=== PATIENT | female | born 1985 | race Caucasian/White ===

== ENCOUNTER → 2016-10-17 | Outpatient (CLI) | payer BC, OTHER ==
[~2016-10-17] MED LIST: BCPILLS PO; FLUT0.15 NAE; PRENTAB26 PO
--- NOTE | 2016-10-17 07:41 | DIAGNOSTIC IMAGING REPORT ---
ABDOMINAL WALL ULTRASOUND CLINICAL HISTORY: Palpable mass COMPARISON STUDY: No previous studies for comparison. FINDINGS: The patient describes 2 palpable abnormalities. Within the left anterior abdominal wall, no ultrasonographic lesions were visualized. At the level of the left lateral ribs there is a 31 x 5 x 13 mm mass isoechoic to adjacent fat and likely representing a lipoma. Clinical correlation is advocated. IMPRESSION: 1. At the level of the left lateral ribs there is a 31 x 5 x 13 mm mass isoechoic to adjacent fat, and likely representing a lipoma. Clinical correlation is advocated 2. No ultrasonographic masses identified within the left anterior abdominal wall. Electronically signed by: Charlie Arce M.D. 10/17/2016 7:40 AM Dictated Date/Time: 10/17/2016 7:38 AM
[2016-10-17 09:45] LABS: BASO % 0.4 %; BASO ABS # 0.03 K/uL (0-0.2); COMPLETE YES; EOS % 1.2 %; HEMATOCRIT 41.4 % (37-47); IG% 0.4 %; LYMPH % 13.6 %; MEAN CELL VOLUME 87.5 fL (80-100); MEAN CORPUSCULAR HGB CONC 34.3 g/dl (32-36); MEAN PLATELET VOLUME 10.3 fL (7.4-10.4); MONO % 12.1 %; NEUT % 72.3 %; PLATELET COUNT 264 K/uL (130-400); RED BLOOD COUNT 4.73 M/uL (4.2-5.4); WHITE BLOOD COUNT 7.38 K/uL (4.8-10.8)
[2016-10-17 09:53] LABS: PARTIAL THROMBOPLASTIN RATIO 1.1; PROTHROMBIN TIME (PATIENT) 11.2 SECONDS (9.0-12.0)
[2016-10-17 10:00] LABS: POTASSIUM 4.2 mmol/L (3.5-5.1)
== END | disposition home or self-care (01) ==
LOC: C.ULTR 07:03
PROVIDERS: ATTEND Plastic Surgery
DX: Z01.812 Encounter for preprocedural laboratory examination (principal); M79.9 Soft tissue disorder, unspecified

== ENCOUNTER → 2016-11-04 | Day surgery (SDC) | payer BC, OTHER ==
[2016-10-21 15:35] VITALS: Ht 161.9 cm; Wt 72.7 kg
[~2016-11-04] VITALS: Ht 161.9 cm; Wt 72.7 kg
[~2016-11-04] MED LIST changes: +ACETAMINOPHEN 325 MG TAB PO PRN; +ATROPINE SULFATE 0.1 MG/ML 5ML SYR IV PRN; -BCPILLS PO; +BUPIVACAINE 0.25% 2.5MG/ML PF 10 ML VIAL INFIL ONE; +CEFAZOLIN 2000 MG/60 ML D5W IV SCH; +DEXAMETHASONE SOD INJ 4 MG/ML VIAL ONE; +EpHEDrine SULFATE INJ 50 MG/ML AMP IV PRN; +FENTANYL CITRATE INJ 50 MCG/1 ML 2 ML VIAL IV PRN; +FENTANYL CITRATE INJ 50 MCG/1 ML 2 ML VIAL ONE; +KETAMINE HCL INJ 50 MG/ML 10 ML VIAL ONE; +LACTATED RINGER'S 1000ML 1,000 ML IV SCH; +LIDOCAINE HCL 2% 2 ML VIAL (20MG/ML) ONE; +METOCLOPRAMIDE HCL INJ 5 MG/ML 2 ML VIAL IV PRN; +MIDAZOLAM HCL 1 MG/ML 2ML VIAL ONE; +ONDANSETRON INJ 2 MG/ML 2 ML VIAL IV PRN; +ONDANSETRON INJ 2 MG/ML 2 ML VIAL ONE; +OXYCODONE/ACETAMINOPHEN 5-325 TAB PO PRN; +PROPOFOL IV EMULSION 10 MG/ML 20 ML VIAL IV ONE; +SCOPOLAMINE 1.5 MG TDSY TD ONE; +SODIUM CHLORIDE 0.9% 1000ML 1,000 ML IV SCH; +SODIUM CHLORIDE 0.9% INJ 10 ML VIAL ONE
--- NOTE | 2016-11-04 08:34 | History & Physical Bridge - SC ---
H&P Re-Evaluation Bridge Note: I have examined the patient, reviewed the History & Physical and in the interval since the performance of the History & Physical I have noted the following changes of clinical significance: Recent URI and yeast infection; resolved
[2016-11-04] MEDS: LIDOCAINE/EPINEPHRINE 1% INJ 50 ML VIAL ONE (08:56)
--- NOTE | 2016-11-04 09:49 | [facility] Post Operative Brief Note ---
Immediate Operative Summary Operative Date Nov 04, 2016. Pre-Operative Diagnosis Left Abdomen Soft Tissue Mass Post-Operative Diagnosis Same Procedure(s) Performed Left Abdomen Soft Tissue Mass Excision Surgeon Dr. Bar Senior Web Analyst Surgeon(s) Brayden Rodriguez PA-C Estimated Blood Loss 1 mL Findings lipoma left upper abdomen 6x6 cm, subcutaneous and fibrous Specimens A. Mass Left Abdomen Drains 1/4 inch cristóbal Anesthesia local with sedation Complication(s) None Disposition Recovery Room / PACU
[2016-11-04 09:55] VITALS: TEMP 36.7
--- NOTE | 2016-11-04 10:02 | Discharge Instructions ---
Discharge Instructions Admission Reason for Admission: Soft Tissue Mass Left Abdomen Discharge Discharge Diagnosis / Problem: soft tissue mass of left abdomen Discharge Goals Goal(s): Decrease discomfort Activity Recommendations Activity Limitations: as noted below ACTIVITY RECOMMENDATIONS: __Normal activities _x_No bending, lifting or straining __No driving _x_Driving allowed when you are off pain medications __Walking permitted __You should have help at home for ___ days DRESSINGS: __No dressings required _x_Keep dressings dry/in place until first office visit. You may reinforce the dressing if it gets saturated. You have a drain in place that is expected to drain into the gauze. __Remove dressings ___ and leave dressings off _x_Apply ice __2_ days __Remove dressings and reapply garment __Apply antibiotic ointment (Bacitracin, Neosporin, etc) to wounds 3-4 times/ day for 10 days BATHING: _x_Keep dressings dry _x_Sponge bathing permitted __Showering permitted _x_No swimming, hot tubs or soaking in a tub MEDICATIONS: Resume previous medications unless instructed otherwise by your surgeon. _x_Do not use aspirin, Motrin, Advil or Ibuprofen as these may promote bleeding. Please use Tylenol. _x_Prescription(s) provided: pain medicated provided at your last office visit OTHER INSTRUCTIONS: __Record drain output 2-3 times per day SPECIAL CARE INSTRUCTIONS: * It is normal to have a mild fever after surgery. If your temperature is higher than 101.5 degrees F, please call the office at [phone]. * Constipation is a typical side effect of pain medication. An over-the- counter stool softener will help relieve this. * Leaking around surgical drains may occur and should not cause concern. Sometimes these drains become clogged. If this happens, remove the bulb and milk the clot out of the tube, then replace the bulb. * Drainage from wounds after liposuction is normal and should be expected. Garments will become soiled. You should protect furniture and bedding. This drainage should mostly subside within 2-3 days. Leave garments in place unless instructed to remove them. * If you have unusual drainage from a wound or are concerned you have an infection or have any questions or concerns, please call the office at [phone]. FOLLOW UP VISIT: If not already scheduled, please call the office, , when you return home after surgery to schedule an appointment to be seen in __2_ days. . Current Hospital Diet Patient's current hospital diet: Discharge Diet Recommended Diet: Regular Diet Procedures Procedures Performed: Left Abdomen Soft Tissue Mass Excision Pending Studies Studies pending at discharge: yes List of pending studies: pathology Medical Emergencies . Who to Call and When: Medical Emergencies: If at any time you feel your situation is an emergency, please call 911 immediately. . Non-Emergent Contact Non-Emergency issues call your: Primary Care Provider, Surgeon . "Provider Documentation" section prepared by Maribell Rodriguez. VTE Core Measure Inpt VTE Proph given/why not?: SCD's [place] Drug Monitoring Program Search Results: no issues identified
[2016-11-04 10:45] VITALS: BP 107/67; PULSE 79; O2SAT 98
--- NOTE | 2016-11-04 10:49 | Anesthesia Progress Nt - [facility] ---
Anesthesia Post Op Note Date & Time Nov 04, 2016 at 10:49 Vital Signs Pain Intensity: 3.0 Vital Signs Past 12 Hours Date Time Temp Pulse Resp B/P Pulse Ox O2 Delivery O2 Flow Rate FiO2 11/04/16 10:45 79 16 107/67 98 Room Air 11/04/16 10:26 77 16 107/70 97 Room Air 11/04/16 09:55 36.7 86 16 120/66 97 Room Air 11/04/16 07:44 36.9 104 20 135/84 99 Room Air Notes Mental Status: alert / awake / arousable, participated in evaluation Pt Amnestic to Procedure: Yes Nausea / Vomiting: adequately controlled Pain: adequately controlled Airway Patency, RR, SpO2: stable & adequate BP & HR: stable & adequate Hydration State: stable & adequate Anesthetic Complications: no major complications apparent
--- NOTE | 2016-11-04 14:24 | OPERATIVE REPORT ---
DATE OF OPERATION: 11/04/2016 PREOPERATIVE DIAGNOSIS: Left upper abdomen lipoma. POSTOPERATIVE DIAGNOSIS: Same. PROCEDURE: Excision of lipoma, left upper abdomen. SURGEON: Dr. Josephine Bar. JAI ALAI PLAYER: Maribell Rodriguez PA-C. ANESTHESIA: Local with sedation. COMPLICATIONS: None. INDICATION FOR THE PROCEDURE: The patient is a 31-year-old female who presented to my office with an enlarging lipoma of her left upper abdomen. She stated that the area began as a small well-circumscribed mass that had been stable for years and then began to grow. Ultrasound showed a small lipoma which was palpable on clinical exam but did not comment about the diffuse, apparent soft tissue mass surrounding this. We therefore elected to proceed with removal. BRIEF DESCRIPTION OF THE PROCEDURE: Risks, benefits, and alternatives of the procedure were explained to the patient who agreed and signed consent. She was identified and marked in the preoperative holding area. She was brought to the operating room where she was positioned supine and placed under sedation without incident. Surgical site was prepped and draped sterilely. A time-out procedure was performed. A 50:50 mixture of 0.25% Marcaine plain and 1% lidocaine with epinephrine was used to anesthetize the area. A 15-blade scalpel was used to make the skin incision and the incision was deepened using electrocautery through dermis and into subcutaneous tissue. Within the subcutaneous tissue, a somewhat poorly circumscribed soft tissue mass was identified, that was consistent with lipoma. Multiple fibrous septa were divided using electrocautery to dissect the lipoma sharply and blunt finger dissection was used to remove the entire lipoma. This included the small palpable mass as well as the diffuse larger surrounding mass. Following resection, no additional palpable thickening or mass was identified. Hemostasis was achieved with electrocautery. The wound bed was irrigated. Given the relatively large size of the wound bed, a quarter inch Inés drain was placed prior to closure. The specimen measured 6 x 6 cm in aggregate. The wound was reapproximated using 2-0 Vicryl deep dermal sutures and 3-0 Monocryl running subcuticular suture. Dermabond was applied. The Inés drain was brought out through the end of the incision prior to closure. A dry dressing was placed. The procedure was tolerated well. She was awakened and transferred to recovery room in satisfactory condition. I attest to the content of the Intraoperative Record and any orders documented therein. Any exceptio ns are noted below.
== END | disposition home or self-care (01) ==
LOC: X.SURG 07:34
PROVIDERS: ATTEND Plastic Surgery
DX: D17.39 Benign lipomatous neoplasm of skin and subcutaneous tissue of other sites (principal)

== ENCOUNTER → 2016-12-19 | Outpatient (CLI) | payer BC, OTHER ==
[~2016-12-19] MED LIST changes: -ACETAMINOPHEN 325 MG TAB PO PRN; -ATROPINE SULFATE 0.1 MG/ML 5ML SYR IV PRN; -BUPIVACAINE 0.25% 2.5MG/ML PF 10 ML VIAL INFIL ONE; -CEFAZOLIN 2000 MG/60 ML D5W IV SCH; -DEXAMETHASONE SOD INJ 4 MG/ML VIAL ONE; -EpHEDrine SULFATE INJ 50 MG/ML AMP IV PRN; -FENTANYL CITRATE INJ 50 MCG/1 ML 2 ML VIAL IV PRN; -FENTANYL CITRATE INJ 50 MCG/1 ML 2 ML VIAL ONE; -KETAMINE HCL INJ 50 MG/ML 10 ML VIAL ONE; -LACTATED RINGER'S 1000ML 1,000 ML IV SCH; -LIDOCAINE HCL 2% 2 ML VIAL (20MG/ML) ONE; -METOCLOPRAMIDE HCL INJ 5 MG/ML 2 ML VIAL IV PRN; -MIDAZOLAM HCL 1 MG/ML 2ML VIAL ONE; -ONDANSETRON INJ 2 MG/ML 2 ML VIAL IV PRN; -ONDANSETRON INJ 2 MG/ML 2 ML VIAL ONE; -OXYCODONE/ACETAMINOPHEN 5-325 TAB PO PRN; -PROPOFOL IV EMULSION 10 MG/ML 20 ML VIAL IV ONE; -SCOPOLAMINE 1.5 MG TDSY TD ONE; -SODIUM CHLORIDE 0.9% 1000ML 1,000 ML IV SCH; -SODIUM CHLORIDE 0.9% INJ 10 ML VIAL ONE
--- NOTE | 2016-12-19 13:03 | MAMMOGRAPHY REPORT ---
ULTRASOUND OF RIGHT BREAST: 12/19/2016 CLINICAL HISTORY: The patient reports a lumpy area in her right breast. She stopped control p ills approximately 6 months ago and is trying to get . She reports her menstrual period is late and she could not exclude the possibility of . COMPARISON: No prior exams were available for comparison. TECHNIQUE: Real-time targeted ultrasound of the right breast was performed. FINDINGS: Real-time, high resolution targeted ultrasound was performed of the area of the lumps pointed out by the patient, in the right 11 to 12:00 breast, 8 cm from the nipple. Sonographically normal tissue is seen in this region, without evidence of a mass or other suspicious sonographic normality. After discussion with the patient, as the possibility of could not be excluded, mammograms were not performed today. IMPRESSION: ACR BI-RADS CATEGORY 1: NEGATIVE No sonographic abnormality at the site of the right breast lumps pointed out by the patient. There is no sonographic evidence of malignancy. As the possibility of cannot be excluded, mammo grams were not performed today. The typical diagnostic workup for a patient over 30 with a palpable lump includes mammograms and ultrasound. I would recommend the patient return for diagnostic mammo grams of the right breast when the possibility of is excluded, in order to have a complete diagnostic workup. The patient was verbally notified of the results. She tentatively scheduled the follow-up mammogram s before leaving the department. Cathy Delvalle M.D. /:12/19/2016 10:55:13 Biomedical Engineering Technologist: Cathy Delvalle MD, [facility] letter sent: Normal 1/2 BI-RADS Code: ACR BI-RADS Category 1: Negative
== END | disposition home or self-care (01) ==
LOC: C.MAMM 08:42
PROVIDERS: ATTEND Obstetrics & Gynecology
DX: N64.4 Mastodynia (principal)

== ENCOUNTER → 2017-01-06 | Outpatient (CLI) | payer BC, OTHER ==
--- NOTE | 2017-01-06 15:28 | MAMMOGRAPHY REPORT ---
UNILATERAL RIGHT DIGITAL DIAGNOSTIC MAMMOGRAM TOMOSYNTHESIS WITH CAD AND TARGETED RIGHT ULTRASOUND: 01/06/2017 CLINICAL HISTORY: 31 year-old woman who noticed her right breast was more distended and lumpy in the superior aspect of the breast and upper outer quadrant since she stopped breast-feeding. No skin e rythema or nipple discharge. No family history of breast cancer. TECHNIQUE: Right breast tomosynthesis in addition to standard 2D mammography was performed. Current study was also evaluated with a Computer Aided Detection (CAD) system. COMPARISON: Comparison is made to exam dated: 12/19/2016 ultrasound - [facility]. BREAST COMPOSITION: There are scattered areas of fibroglandular density in the right breast. FINDINGS: A triangle skin palpable marker overlies the upper outer posterior right breast, denoting the nodularity and lumpiness pointed out by the patient. There is a morphologically normal intramam roscoe lymph node in the upper outer far posterior right breast which is somewhat near the area of pal pable concern. This lymph node measures 11 x 5 mm. There is no evidence of a suspicious mass, arch itectural distortion or cluster of suspicious microcalcifications. Targeted ultrasound was performed in the area of the palpable intramammary lymph node in the right a xillary tail/right axilla identified mammographically. A morphologically normal lymph node is seen in the axillary tail/axillary region measuring 8.2 mm with a normal cortex. This correlates with th e mammographic node and is benign. Additional scanning was performed in the area of nodularity poin lopez out by the patient throughout the right upper outer quadrant. Incidental note is made of a seco nd smaller morphologically normal lymph node in the 10:00 right breast, 9 cm from the nipple. Throu ghout the remainder of the upper outer quadrant, normal fibroglandular tissue is seen without a susp icious solid or cystic mass. IMPRESSION: ACR BI-RADS CATEGORY 2: BENIGN, TARGETED ULTRASOUND ACR BI-RADS CATEGORY 2: BENIGN 1. There is no mammographic or targeted sonographic evidence of malignancy. No suspicious mammogra phic or sonographic abnormality is identified to explain the increasing nodularity in the right uppe r outer quadrant and superior breast on the described by the patient. Therefore, clinical follow-up is recommended, as biopsy of a clinically suspicious mass should not be precluded by negative imagi ng. 2. Incidental note is made of 2 morphologically normal intramammary lymph nodes in the right upper outer quadrant/axillary tail. These results and recommendations were discussed with the patient at the time of the exam. Approximately 10% of breast cancers are not detected with mammography. A negative mammographic repor t should not delay biopsy if a clinically suggestive mass is present. Regina Adam M.D. ay/:01/06/2017 11:22:20 Dining Room Host: Baljinder TEIXEIRA(R)(M), [facility] letter sent: Normal 1/2 BI-RADS Code: ACR BI-RADS Category 2: Benign Ultrasound BI-RADS: ACR BI-RADS Category 2: Benign
== END | disposition home or self-care (01) ==
LOC: C.MAMM 08:42
PROVIDERS: ATTEND Obstetrics & Gynecology
DX: N64.4 Mastodynia (principal)

== ENCOUNTER → 2017-03-27 | Outpatient (CLI) | payer BC, OTHER | END | disposition home or self-care (01) | LOC: C.PAPS 11:56 | PROVIDERS: ATTEND Obstetrics & Gynecology | DX: Z01.419 Encounter for gynecological examination (general) (routine) without abnormal findings (principal) ==

== ENCOUNTER → 2017-04-08 | Outpatient (CLI) | payer BC, OTHER ==
--- NOTE | 2017-04-08 09:40 | DIAGNOSTIC IMAGING REPORT ---
LEFT HUMERUS 2 VIEWS CLINICAL HISTORY: Left arm pain. No reported history of trauma. FINDINGS: AP and lateral views of the left humerus are obtained. No prior studies are available for comparison at the time of dictation. The skeletal structures are well mineralized. No fracture is seen. The shoulder and elbow joints are grossly maintained. The overlying soft tissues are within normal limits. IMPRESSION: Unremarkable radiographic assessment of the left humerus. Electronically signed by: Bob Ramos M.D. 04/08/2017 9:39 AM Dictated Date/Time: 04/08/2017 9:38 AM
== END | disposition home or self-care (01) ==
LOC: C.RAD1850 09:26
PROVIDERS: ATTEND Nurse Practitioner Family
DX: M79.622 Pain in left upper arm (principal)

== ENCOUNTER → 2017-05-29 | Outpatient (CLI) | payer BC, OTHER ==
[2017-05-29 18:47] LABS: URINE APPEARANCE CLEAR (CLEAR); URINE BILIRUBIN NEG (NEG); URINE COLOR YELLOW; URINE EPITHELIAL CELL AUTO >30 /lpf (0-5); URINE NITRITE NEG (NEG); UROBILINOGEN NEG (NEG)
[2017-05-29 18:49] LABS: MANUAL MICROSCOPIC REQUIRED? NO; REVIEW REQ? NO
== END | disposition home or self-care (01) ==
LOC: C.LABSPEC 13:22
PROVIDERS: ATTEND Obstetrics & Gynecology
DX: Z34.91 Encounter for supervision of normal pregnancy, unspecified, first trimester (principal)

== ENCOUNTER → 2017-06-02 | Outpatient (CLI) | payer BC, OTHER ==
[2017-06-04 22:32] LABS: CHLAMYDIA TRACH RNA*** NOT DETECTED (NOT DETECTED); GC (NEIS GONORRHOEAE)RNA** NOT DETECTED (NOT DETECTED)
== END | disposition home or self-care (01) ==
LOC: C.LABSPEC 17:58
PROVIDERS: ATTEND Obstetrics & Gynecology
DX: Z34.91 Encounter for supervision of normal pregnancy, unspecified, first trimester (principal)

== ENCOUNTER 2017-07-03 03:17 | Emergency (ER) | payer BC, OTHER ==
[~2017-07-03] VITALS: Ht 160 cm; Wt 73.0 kg
[2017-07-03 03:21] VITALS: Ht 160 cm; Wt 73.0 kg
[2017-07-03] MEDS ORDERED: SODIUM CHLORIDE 0.9% 1000ML 2,000 ML IV STA (03:33)
[2017-07-03] MEDS ORDERED: ONDANSETRON INJ 2 MG/ML 2 ML VIAL ONE (03:52)
[2017-07-03] MEDS ORDERED: MoRPHine SULFATE 4 MG/ML 1 ML CARP\\VIAL ONE (03:52)
[2017-07-03 03:59] LABS: BASO % 0.2 %; BASO ABS # 0.03 K/uL (0-0.2); COMPLETE YES; EOS % 1.6 %; IG% 0.2 %; LYMPH % 33.3 %; LYMPH ABS # 4.25 K/uL (1.2-3.4); MEAN CELL VOLUME 87.2 fL (80-100); MEAN CORPUSCULAR HEMOGLOBIN 30.5 pg (25-34); MEAN PLATELET VOLUME 8.9 fL (7.4-10.4); MONO % 5.2 %; NEUT % 59.5 %; PLATELET COUNT 290 K/uL (130-400); RED BLOOD COUNT 3.67 M/uL (4.2-5.4); WHITE BLOOD COUNT 12.76 K/uL (4.8-10.8)
[2017-07-03] MEDS: MoRPHine SULFATE 4 MG/ML 1 ML CARP\\VIAL IV STA ×2 (04:04→04:10)
[2017-07-03] MEDS: ONDANSETRON INJ 2 MG/ML 2 ML VIAL IV STA ×2 (04:05→04:10)
[2017-07-03 04:21] LABS: BUN/CREATININE RATIO 27.3 (10-20); CREATININE 0.75 mg/dl (0.60-1.20); POTASSIUM 3.4 mmol/L (3.5-5.1)
[2017-07-03 04:22] LABS: PARTIAL THROMBOPLASTIN RATIO 0.9; PROTHROMBIN TIME (PATIENT) 10.9 SECONDS (9.0-12.0)
[2017-07-03 04:24] LABS: ALB/GLOB RATIO 0.8 (0.9-2)
[2017-07-03] MEDS ORDERED: POTASSIUM CHLORIDE 10 MEQ TABCR PO STA (05:52)
--- NOTE | 2017-07-03 06:07 | EMERGENCY ROOM VISIT NOTE ---
History First contact with patient: 03:28 Chief Complaint: ED VAG BLEEDING Stated Complaint: MISCARRIAGE, BLEEDING, DIZZINESS WHEN STANDING History of Present Illness The patient is a 32 year old female who presents to the Emergency Room with complaints of heavy vaginal bleeding and cramping for the past few hours. Patient had demise a few days ago by ultrasound and took Cytotec last night and shortly after that her symptoms began that was prescribed by OB. This is her second . Blood type is A-. She received her Rhogam shot this week. She follows at [facility]. Patient states she's passed multiple clots. Patient states she feels lightheaded and like she is going to pass out. No prior blood chickens in the past. Cramping is mild, 3 out of 10. Nothing makes it better or worse to the lower abdomen. It does not radiate. Patient denies chest pain, dyspnea, fever, chills, vomiting, diarrhea, syncope, bleeding disorders. No urinary symptoms. She called OB and was advised to go the ER. Review of Systems See HPI for pertinent positives & negatives. A total of 10 systems reviewed and were otherwise negative. Past Medical/Surgical History Medical Problems: (1) LABOR (2) No Known Active Medical Problems (3) r/o labor (4) Vaginal bleeding (5) Vaginal bleeding Heart murmur Family History Patient reports no known family medical history. Social History Smoking Status: Never Smoker Alcohol Use: none Drug Use: none Marital Status: Housing Status: lives with family Occupation Status: disabled Current/Historical Medications Scheduled Multivit/Min/Iron/Fol Ac/Pren ( Vitamin), 1 TAB PO QAM Physical Exam Vital Signs Date Time Temp Pulse Resp B/P (MAP) Pulse Ox O2 Delivery O2 Flow Rate FiO2 07/03/17 04:57 88 16 107/56 100 Room Air 07/03/17 03:50 Room Air 07/03/17 03:21 100 16 113/75 99 Room Air Physical Exam VITALS: Vitals are noted on the nurse's note and reviewed by myself. Vital signs stable. GENERAL: Pleasant female, in no acute distress, nondiaphoretic, well-developed well-nourished. SKIN: Capillary reflex less than 2 seconds. HEENT: Normocephalic. PERRLA. EOMI. Nares patent. Mucous membranes moist. Neck is supple without nuchal rigidity. HEART: Regular rate and rhythm without murmurs gallops or rubs. LUNGS: Clear to auscultation bilaterally without wheezes, rales or rhonchi. No retractions or accessory muscle use. ABDOMEN: Positive bowel sounds x 4. Normal tympanic percussion. Soft, nontender, without masses or organomegaly. Avery sign negative. No guarding or rebound tenderness. No CVA tenderness exam: External female genitalia, copious amount of blood products in the vault, blood clots coming out of the os and tub chucker present. Suction was used to remove the blood products and 150 mL of blood was removed. Clots and tissue was sent to lab for analysis. Slag Mixer present. MUSCULOSKELETAL: No gross musculoskeletal defects. No pedal edema. NEURO: Patient was alert and oriented to person place and time. Normal sensation to light and sharp touch. No focal neurological deficits. Medical Decision & Procedures Laboratory Results 07/03/17 03:51 Red Blood Count 3.67, Mean Corpuscular Volume 87.2, Mean Corpuscular Hemoglobin 30.5, Mean Corpuscular Hemoglobin Concent 35.0, Mean Platelet Volume 8.9, Neutrophils (%) (Auto) 59.5, Lymphocytes (%) (Auto) 33.3, Monocytes (%) (Auto) 5.2, Eosinophils (%) (Auto) 1.6, Basophils (%) (Auto) 0.2, Neutrophils # (Auto) 7.58, Lymphocytes # (Auto) 4.25, Monocytes # (Auto) 0.66, Eosinophils # (Auto) 0.21, Basophils # (Auto) 0.03 07/03/17 03:51 Test 07/03/17 03:51 White Blood Count 12.76 K/uL (4.8-10.8) Red Blood Count 3.67 M/uL (4.2-5.4) Hemoglobin 11.2 g/dL (12.0-16.0) Hematocrit 32.0 % (37-47) Mean Corpuscular Volume 87.2 fL (80-100) Mean Corpuscular Hemoglobin 30.5 pg (25-34) Mean Corpuscular Hemoglobin Concent 35.0 g/dl (32-36) Platelet Count 290 K/uL (130-400) Mean Platelet Volume 8.9 fL (7.4-10.4) Neutrophils (%) (Auto) 59.5 % Lymphocytes (%) (Auto) 33.3 % Monocytes (%) (Auto) 5.2 % Eosinophils (%) (Auto) 1.6 % Basophils (%) (Auto) 0.2 % Neutrophils # (Auto) 7.58 K/uL (1.4-6.5) Lymphocytes # (Auto) 4.25 K/uL (1.2-3.4) Monocytes # (Auto) 0.66 K/uL (0.11-0.59) Eosinophils # (Auto) 0.21 K/uL (0-0.5) Basophils # (Auto) 0.03 K/uL (0-0.2) RDW Standard Deviation 42.4 fL (36.4-46.3) RDW Coefficient of Variation 13.1 % (11.5-14.5) Immature Granulocyte % (Auto) 0.2 % Immature Granulocyte # (Auto) 0.03 K/uL (0.00-0.02) Prothrombin Time 10.9 SECONDS (9.0-12.0) Prothromb Time International Ratio 1.0 (0.9-1.1) Activated Partial Thromboplast Time 22.2 SECONDS (21.0-31.0) Partial Thromboplastin Ratio 0.9 Anion Gap 8.0 mmol/L (3-11) Est Creatinine Clear Calc Drug Dose 101.2 ml/min Estimated GFR () 120.5 Estimated GFR (Non- 104.0 BUN/Creatinine Ratio 27.3 (10-20) Calcium Level 9.0 mg/dl (8.5-10.1) Total Bilirubin 0.2 mg/dl (0.2-1) Aspartate Amino Transf (AST/SGOT) 14 U/L (15-37) Alanine Aminotransferase (ALT/SGPT) 19 U/L (12-78) Alkaline Phosphatase 56 U/L (45-117) Total Protein 7.0 gm/dl (6.4-8.2) Albumin 3.2 gm/dl (3.4-5.0) Globulin 3.8 gm/dl (2.5-4.0) Albumin/Globulin Ratio 0.8 (0.9-2) Human Chorionic Gonadotropin, Quant 2054 mIU/mL Medications Administered Medications (Trade) Dose Ordered Sig/Johnnie Route Start Time Stop Time Status Last Admin Dose Admin Sodium Chloride 2,000 ml @ 999 mls/hr Q2H1M STAT IV 07/03/17 03:33 07/03/17 05:33 DC 07/03/17 04:03 999 MLS/HR Morphine Sulfate (MoRPHine SULFATE INJ) 4 mg NOW STAT IV 07/03/17 04:02 07/03/17 04:03 DC 07/03/17 04:10 4 MG Ondansetron HCl (Zofran Inj) 4 mg NOW STAT IV 07/03/17 04:02 07/03/17 04:03 DC 07/03/17 04:10 4 MG ED Course Prior records/ancillary studies reviewed. Triage Nursing notes reviewed. Additional history obtained from the family. The patient's history was concerning for vaginal bleeding and abdominal pain. Differential diagnosis: Etiologies such as miscarriage, incomplete miscarriage, retained products of conception, ectopic , dysfunction uterine bleeding, bleeding dyscrasia , trauma, infection, as well as others were entertained. Physical examination: As above. Vitals signs revealed stable ER treatment provided: IV fluids, morphine, Zofran On reassessment the patient felt better. Diagnostic interpretation by me: The labs revealed the patient to the Rh A-. Mild anemia. Quantitative hCG was 2000 Tissue was sent to lab from pelvic exam. Imaging studies: Ultrasound as above US OB 1st TRIMESTER: No priors available. Complex thickened appearance of the endometrial stripe. No definite increased vascularity seen within the complex. Consider blood products. Less likely to represent retained products. Cervix is distended with echogenic complex material probably representing blood clots. Fluid in the pelvic cul-de-sac. No pole or gestational sac visualized. Blood flow demonstrated to both ovaries. No unusual adnexal masses. Radiologist: Ryan Ulloa M.D. Repeat pelvic exam showed less blood in the vault. There was bleeding is still coming out of the os. Consultation: A consultation was placed with the passport support manager physician, Dr. Ryan. The case was discussed and diagnostics were reviewed. She recommends discharge and follow- up in clinic today. This appears to be consistent with miscarriage. Patient's bleeding was under control. Stable vital signs. She already received her RhoGAM shot. Patient's repeat pelvic exam had minimal bleeding. She was well-appearing. She is feeling better. She is advised to follow-up today as scheduled with OB or here in the ER sooner for heavy bleeding, pain, fevers, worsening signs or symptoms or as needed. By the evaluation outlined above emergent etiologies such as bleeding dyscrasia, ectopic , trauma, as well as others were deemed relatively unlikely. The pt informed about the findings as listed above. All questions were answered and pleased with the treatment. Return instructions were outlined and the patient was discharged in stable condition. Outpatient prescription management: zofran Referral: The patient was referred to her OB today for a recheck of her current condition. Case reviewed with my attending. Medical Decision As above Medication Reconcilliation Current Medication List: was personally reviewed by me Blood Pressure Screening Patient's blood pressure: Normal blood pressure Impression Primary Impression: Miscarriage Additional Impressions: Anemia Hypokalemia Departure Information Dispostion Home / Self-Care Condition GOOD Referrals No Doctor, Assigned (PCP) Forms WORK / SCHOOL INSTRUCTIONS, HOME CARE DOCUMENTATION FORM, IMPORTANT VISIT INFORMATION Patient Instructions My [employer] Additional Instructions Rest. Stay well hydrated. No strenuous activity or intercourse until cleared by STITCH BONDING MACHINE DRAWER IN. Zofran 4 tablet every 6 hours as needed for nausea and vomiting. Acetaminophen(Tylenol) may be used for fever or pain. Use 1000mg every six hours as needed. Avoid using more than 3000mg in a 24 hour period. Rest and drink plenty of fluids as tolerated. Continue current medications. Return to the ER immediately for worsening or persistent heavy vaginal bleeding , abdominal pain, vomiting, fevers, chest pains, difficulty breathing, worsening of your condition, or as needed. Follow up with your STITCH BONDING MACHINE DRAWER IN today by phone or appointment for a recheck of your current condition. Problem Qualifiers
[2017-07-03] MEDS ORDERED: ONDANSETRON HOME PACK 4MG OD TAB PO ONE (06:15)
[2017-07-03 06:28] VITALS: BP 112/66; PULSE 79; O2SAT 97
--- NOTE | 2017-07-03 07:40 | DIAGNOSTIC IMAGING REPORT ---
ULTRASOUND OF THE PELVIS CLINICAL HISTORY: Miscarriage. Vaginal bleeding. COMPARISON STUDY: No priors. TECHNIQUE: Real-time, grayscale, and color flow sonography of the pelvis is performed transabdominally. Images are reviewed in the transverse and longitudinal planes. FINDINGS: Uterus: The uterus is top normal in size and heterogeneous in echotexture, measuring 9.0 x 4.3 x 5.7 cm. Complex material is noted within the cervix and vagina, likely representing blood products. Endometrium: No intrauterine gestation is identified. The endometrium appears thickened and heterogeneous, measuring up to 2.1 cm. No internal vascularity seen on color imaging. Ovaries: The ovaries are normal in size and morphology. The right ovary measures 2.6 x 1.9 x 1.5 cm and the left ovary measures 1.6 x 0.9 x 1.4 cm. Small follicles are noted. Normal Doppler waveforms are shown within both ovaries. Pelvis: There is trace nonspecific free fluid in the cul-de-sac. No concerning adnexal lesion is seen. IMPRESSION: 1. No intrauterine gestation is identified. 2. The endometrium appears thickened and heterogeneous. No internal vascularity is identified on color imaging to suggest retained products of conception. 3. Complex material is present within the cervix and vagina, likely representing blood products. Electronically signed by: Bob Ramos M.D. 07/03/2017 7:39 AM Dictated Date/Time: 07/03/2017 7:36 AM
== END 2017-07-03 06:30 | disposition home or self-care (01) ==
LOC: C.EDB 03:18
DX: O03.9 Complete or unspecified spontaneous abortion without complication (principal); D64.9 Anemia, unspecified; E87.6 Hypokalemia

== ENCOUNTER → 2017-11-27 | Outpatient (CLI) | payer OTHER ==
[~2017-11-27] MED LIST changes: -FLUT0.15 NAE
== END | disposition home or self-care (01) ==
LOC: C.LABSPEC 12:29
PROVIDERS: ATTEND Obstetrics & Gynecology
DX: O09.521 Supervision of elderly multigravida, first trimester (principal); Z3A.00 Weeks of gestation of pregnancy not specified

== ENCOUNTER → 2017-12-01 | Outpatient (CLI) | payer OTHER | END | disposition home or self-care (01) | LOC: C.LABSPEC 15:36 | PROVIDERS: ATTEND Obstetrics & Gynecology | DX: O09.521 Supervision of elderly multigravida, first trimester (principal); Z3A.00 Weeks of gestation of pregnancy not specified ==

== ENCOUNTER → 2018-04-20 | Outpatient (CLI) | payer OTHER | END | disposition home or self-care (01) | LOC: C.LABSPEC 13:06 | PROVIDERS: ATTEND Obstetrics & Gynecology | DX: O09.523 Supervision of elderly multigravida, third trimester (principal); Z3A.00 Weeks of gestation of pregnancy not specified ==